=== PATIENT | female | born 1985 | race African-American/Black ===

== ENCOUNTER 2020-11-03 03:15 | Observation (INO) | payer OTHER ==
[~2020-11-03] VITALS: Ht 152.4 cm; Wt 63.5 kg
[2020-11-03] MEDS ORDERED: ACETAMINOPHEN 325 MG TABLET PO ONE (04:15)
[2020-11-03 04:40] VITALS: BP 121/84
== END 2020-11-03 07:00 ==
LOC: 4S 03:15
PROVIDERS: ADMIT Student in an Organized Health Care Education/Training Program; ATTEND Student in an Organized Health Care Education/Training Program
DX: O60.02 Preterm labor without delivery, second trimester (principal); O26.892 Other specified pregnancy related conditions, second trimester; R07.9 Chest pain, unspecified; Z3A.22 22 weeks gestation of pregnancy; W18.39XA Other fall on same level, initial encounter; Y93.89 Activity, other specified; Y92.89 Other specified places as the place of occurrence of the external cause
CPT/HCPCS: 59025; 76805; 99219